=== PATIENT | female | born 1940 | race Caucasian/White ===

== ENCOUNTER 2018-07-09 11:36 | Emergency (ER) | payer MEDICARE ==
[2018-07-09 12:00] VITALS: RESP 18; O2SAT 95
--- NOTE | 2018-07-09 14:45 | ED PDOC ---
HPI: Chest Pain Time Seen by Provider: 07/09/18 12:18 Chief Complaint (Nursing): Trauma Chief Complaint (Provider): chest pain History Per: Patient, Family History/Exam Limitations: no limitations Onset/Duration Of Symptoms: Days (1) Current Symptoms Are (Timing): Still Present Quality: Aching Associated Symptoms: denies: Nausea, Dyspnea, Diaphoresis, Syncope Additional Complaint(s): 78 y/o F with Parkinson's disease s/p neural stimulator in 04/2018 who presents with daughter c/o Left sided chest/rib pain after fall yesterday. patient states that she tripped on a towel coming out of the shower yesterday and fell onto her Left side now having Left sided rib pain. Denies LOC, dizziness, palpitations, SOB, head trauma, N/V, diarrhea. Fall was witnessed by [employer] makeup artist who assisted her in getting up. Past Medical History Reviewed: Historical Data, Nursing Documentation, Vital Signs Vital Signs: Last Vital Signs Temp 98.5 F 07/09/18 11:54 Pulse 90 07/09/18 11:54 Resp 18 07/09/18 11:54 BP 111/71 07/09/18 11:54 Pulse Ox 95 07/09/18 11:54 - Medical History PMH: Parkinson's Disease Denies: CAD, Diabetes, HTN, Hypercholesterolemia - Surgical History Surgical History: Other surgeries: spine surgery. neural stimulator for Parkinson's disease - Family History Family History: States: No Known Family Hx - Social History Current smoker - smoking cessation education provided: No Ex-Smoker (has not smoked in the last 12 months): No Alcohol: None Drugs: Denies - Allergies Allergies/Adverse Reactions: Allergies Allergy/AdvReac Type Severity Reaction Status Date / Time ibuprofen [From Advil] Allergy ANAPHYLAXIS Verified 07/09/18 11:59 Review of Systems ROS Statement: Except As Marked, All Systems Reviewed And Found Negative Cardiovascular: Negative for: Chest Pain, Palpitations, Light Headedness Respiratory: Negative for: Cough, Shortness of Breath Gastrointestinal: Negative for: Nausea, Vomiting Musculoskeletal: Positive for: Other (chest wall pain) Physical Exam - Reviewed Nursing Documentation Reviewed: Yes Vital Signs Reviewed: Yes - Physical Exam Appears: Positive for: Well Head Exam: Positive for: ATRAUMATIC Skin: Positive for: Normal Color Eye Exam: Positive for: Normal appearance Neck: Positive for: Painless ROM, Supple Cardiovascular/Chest: Positive for: Regular Rate, Rhythm Respiratory: Positive for: Normal Breath Sounds Gastrointestinal/Abdominal: Positive for: Normal Exam Back: Positive for: Normal Inspection Extremity: Positive for: Normal ROM (Normal flexion and extension at B/L Upper and lower extremities and ankles. ) Neurologic/Psych: Positive for: Alert, Oriented - ECG O2 Sat by Pulse Oximetry: 95 Medical Decision Making Medical Decision Making: EKG Trop CXR Rib x-ray Tylenol for pain Rib X-ray: unremarkable radiographs of the chest and B/L ribs. CXR: no infiltrate, limited exam. Disposition - Clinical Impression Clinical Impression: Rib pain - Patient ED Disposition Is Patient to be Admitted: No Counseled Patient/Family Regarding: Studies Performed, Diagnosis - Disposition Disposition: Routine/Home Disposition Time: 15:29 Condition: STABLE Additional Instructions: F/u with your primary care physician as needed for worsening pain. Can perform normal activities as tolerated. Tylenol as needed. Instructions: Chest Pain (DC) Forms: [employer] (Czech) Print Language: YAKUT
--- NOTE | 2018-07-09 15:14 | RAD ---
Date of service: 07/09/2018 PROCEDURE: Radiographs of the chest and bilateral ribs HISTORY: chest pain after fall COMPARISON: None available. TECHNIQUE: Frontal radiograph of the chest and multiple oblique radiographs of the bilateral ribs were obtained. FINDINGS: RIGHT RIBS: No fracture or focal lesion visualized. LEFT RIBS: No fracture or focal lesion visualized. LUNGS: Right lung partially obscured by overlying PLEURA: Electronic apparatus CARDIOVASCULAR: Normal cardiac size. No pulmonary vascular congestion. No aortic atherosclerotic calcification present OTHER FINDINGS: None. IMPRESSION: Unremarkable radiographs of the chest and bilateral ribs. No rib fracture.
--- NOTE | 2018-07-09 15:31 | RAD ---
Date of service: 07/09/2018 HISTORY: shortness of breath, cough COMPARISON: 07/12/2009 TECHNIQUE: Chest PA and lateral FINDINGS: LUNGS: No infiltrate. Right lung base obscured in the frontal projection by overlying electronic device. PLEURA: No significant pleural effusion identified. No pneumothorax apparent. CARDIOVASCULAR: No aortic atherosclerotic calcification present. Normal cardiac size. No pulmonary vascular congestion. OSSEOUS STRUCTURES: No evidence of fracture. VISUALIZED UPPER ABDOMEN: Normal. OTHER FINDINGS: None. IMPRESSION: No acute infiltrate. Limited examination.
--- NOTE | 2018-07-09 16:17 | CARD ---
APPROVED REPORT Date of service: 07/09/2018 EKG Measurement Heart [id number] <Conclusion> Normal sinus rhythm Left axis deviation Nonspecific ST abnormality Abnormal ECG
[2018-07-09 18:22] VITALS: BP 122/65; PULSE 78; TEMP 98
== END 2018-07-09 15:45 | disposition home or self-care (01) ==
LOC: H.ER 11:36
DX: R07.82 Intercostal pain (principal); W19.XXXA Unspecified fall, initial encounter; Y92.89 Other specified places as the place of occurrence of the external cause; G20 Parkinson's disease; Z88.6 Allergy status to analgesic agent